=== PATIENT | male | born 1970 | race Caucasian/White ===

== ENCOUNTER 2017-08-07 14:25 | Emergency (ER) | payer SELFPAY ==
--- NOTE | 2017-08-07 15:49 | RADIOLOGY REPORT (SQ) ---
EXAM DESCRIPTION: FOOT RIGHT COMPLETE COMPLETED DATE/TIME: 08/07/2017 3:39 pm REASON FOR STUDY: right foot swelling COMPARISON: None. NUMBER OF VIEWS: Three views. TECHNIQUE: AP, lateral and oblique without weight bearing radiographic images acquired of the right foot. LIMITATIONS: None. FINDINGS: MINERALIZATION: Normal. BONES: No acute fracture or dislocation. No worrisome bone lesions. No significant osteophytes. JOINTS: No erosions. No la-articular osteopenia. No chondrocalcinosis. SOFT TISSUES: No swelling. No calcifications. OTHER: No other significant finding. IMPRESSION: NO SIGNIFICANT RADIOGRAPHIC ABNORMALITY. TECHNICAL DOCUMENTATION: JOB ID: [id number] [employer]- All Rights Reserved Reading location - IP/workstation name: [email or web address]
--- NOTE | 2017-08-07 16:18 | ER Document Report ---
ED Extremity Problem, Lower - General Chief Complaint: Foot Pain Stated Complaint: FOOT PAIN Time Seen by Provider: 08/07/17 15:26 Mode of Arrival: Ambulatory Information source: Patient TRAVEL OUTSIDE OF THE [place] IN LAST 30 DAYS: No - HPI Patient complains to provider of: Pain Location: Foot Notes: Patient is here with complaints of pain in his right foot intermittently for the last several months. He denies any specific injury or fall. He denies fever. He denies any current numbness, tingling, weakness. Pain seems to be worse in the morning and gets better as the day progresses. He denies any chest pain or shortness of breath. No leg pain or leg swelling. No redness. No rash. He has not been seen by primary care doctor regarding this. Pain is worse when he touches the area or walks, nothing in particular makes it better. He denies any other complaints at this time. - Related Data Allergies/Adverse Reactions: No Known Allergies Allergy (Verified 08/07/17 15:18) Past Medical History - Social History Smoking Status: Never Smoker Frequency of alcohol use: None Drug Abuse: None Family History: Reviewed & Not Pertinent Patient has suicidal ideation: No Patient has homicidal ideation: No Renal/ Medical History: Denies: Hx Peritoneal Dialysis Review of Systems - Review of Systems -: Yes All other systems reviewed and negative Physical Exam - Vital signs Vitals: Temp Pulse Resp BP Pulse Ox 97.9 F 83 18 149/83 H 96 08/07/17 15:12 08/07/17 15:12 08/07/17 15:12 08/07/17 15:12 08/07/17 15:12 - Notes Notes: GENERAL: alert, cooperative, nontoxic, no distress. HEAD: normocephalic, atraumatic EYES: conjunctiva pink without discharge, no external redness or swelling. EARS: no external swelling, no external redness NOSE: atraumatic, no external swelling MOUTH/THROAT: mucous membranes moist and pink NECK: soft, supple, full range of motion, no meningismus. CHEST: no distress, lungs clear and equal throughout. No wheezing, rales, rhonchi. CARDIAC: regular rate and rhythm, no murmur, normal capillary refill, normal pulses. BACK: full range of motion, no CVA tenderness. EXTREMITIES: full range of motion of all extremities. No redness, no swelling. No tenderness to palpation of the right foot at this time. No deformity. Normal pulse and sensation. Ankle exam is normal. Achilles is normal. Normal Torres's test. No redness or swelling to the calf. Normal cap refill. NEURO: alert and oriented 3, no focal deficits, full range of motion of all extremities. PYSCH: appropriate mood, affect. Patient is cooperative. SKIN: pink, warm, dry, no rash. Course - Re-evaluation Re-evalutation: 08/07/17 16:22 Patient is nontoxic appearing with stable vitals. Is here with complaints of right foot pain. The pain is been present for the last several months. No specific injury. There is no redness or swelling. No fever. No numbness, tingling, weakness. Compartments are soft. He is a completely benign exam at this time. X-ray showed no acute abnormalities. It is possible that this could be related to some arthritis since the pain seems to be worse in the morning and improve as the day progresses. This point there is no sign of gout or infection. Patient was offered a postop shoe but refused it at this time. I will discharge him home with a prescription for meloxicam and referral to podiatry and or so to help further evaluate his chronic foot pain. The patient is noted to have elevated blood pressure during today's emergency department visit. The patient was informed of this finding. The patient was instructed that this may be related to pre-hypertension and requires further evaluation with a primary care provider. The patient has no hypertensive symptoms at this time. The patient's emergency department workup and current diagnosis were explained to the patient and or family. Follow-up instructions were provided. Medications if prescribed were discussed. Instructions for when to return to the emergency department including specific worrisome symptoms were discussed with the patient and/or family. - Vital Signs Vital signs: Temp Pulse Resp BP Pulse Ox 97.9 F 83 18 149/83 H 96 08/07/17 15:12 08/07/17 15:12 08/07/17 15:12 08/07/17 15:12 08/07/17 15:12 - Diagnostic Test Radiology reviewed: Image reviewed, Reports reviewed - Normal right foot Discharge - Discharge Clinical Impression: Pain, foot, right, chronic Condition: Stable Disposition: HOME, SELF-CARE Instructions: Chronic Pain Control ([facility]) Additional Instructions: Take medications as prescribed. You may also take Tylenol as needed for pain. Do not take ibuprofen while taking the meloxicam. Rest, ice, elevate your foot. Follow-up with orthopedics or podiatry at the next available appointment for further evaluation of your chronic foot pain. Should follow-up sooner for worsening pain, fever, redness, numbness, tingling, weakness, or for any further concerns. Your blood pressure was elevated during today's visit. Have this rechecked with your doctor. Prescriptions: Meloxicam 7.5 mg PO DAILY #15 tablet Forms: Elevated Blood Pressure, Smoking Cessation Education Referrals: RANJANA ARROYO MD [ACTIVE STAFF] - Follow up as needed JESSICA MOLINA DPM [ACTIVE STAFF] - Follow up as needed MADHAVI MCCARTHY DPM [ACTIVE STAFF] - Follow up as needed SONNY LEONARDO DPM [ACTIVE STAFF] - Follow up as needed NEIL REED DPM [ACTIVE STAFF] - Follow up as needed ROSA WEBB DPM [NO LOCAL MD] - Follow up as needed BRIGID PALMER DPM [NO LOCAL MD] - Follow up as needed
[2017-08-07 16:44] VITALS: BP 129/85
== END 2017-08-07 16:44 | disposition home or self-care (01) ==
LOC: ER 14:25
DX: M79.671 Pain in right foot (principal); G89.29 Other chronic pain; R03.0 Elevated blood-pressure reading, without diagnosis of hypertension
CPT/HCPCS: 99283